=== PATIENT | female | born 1930 | race Caucasian/White ===

== ENCOUNTER 2016-11-04 11:57 | Inpatient (IN) | payer OTHER ==
[2016-11-04 12:31] VITALS: BMI 31.2
--- NOTE | 2016-11-04 12:34 | PDOC ---
History of Present Illness <Landry Webster - Last Filed: 11/04/16 14:41> - General History Source: Patient, Family Exam Limitations: Dementia - History of Present Illness Initial Comments: 86 yo F history dementia, HTN, osteopotosis sent by Dr. Guevara for admission. She has history of dementia, was recently started on namenda after she was starting to get worse. She has been declining for 1 month. She has developed swelling in her feet bilaterally, has not been walking, stating that her feet hurt and she is weak. Denies fever, chills. No recent illness. She offers no complaints. As per family, she is usually very active and talkative, has been listless, apathetic. Not attending to her ADLs independently. History obtained largely from sonDevyn, at bedside. Contact number <Estrellita Gambino - Last Filed: 11/05/16 15:25> - General Chief Complaint: Revisit, Lab Variance Stated Complaint: Revisit, Lab Variance Time Seen by Provider: 11/04/16 12:04 Past History <Landry Webster - Last Filed: 11/04/16 14:41> - Past Medical History HTN: Yes Hypercholesterolemia: Yes - Immunization History Immunization Up to Date: Yes - Psycho/Social/Smoking Cessation Hx Anxiety: No Suicidal Ideation: No Smoking History: Never smoked Have you smoked in the past 12 months: No Information on smoking cessation initiated: No Hx Alcohol Use: No Drug/Substance Use Hx: No Substance Use Type: None <Estrellita Gambino - Last Filed: 11/05/16 15:25> - Past Medical History Allergies/Adverse Reactions: Allergies Allergy/AdvReac Type Severity Reaction Status Date / Time No Known Allergies Allergy Verified 11/04/16 15:07 Home Medications: Ambulatory Orders Alendronate Na [Fosamax] 70 mg PO Q7D 11/04/16 Aspirin [ASA -] 81 mg PO DAILY 11/04/16 Calcium 500Mg/Vit-D 200 Units [Os-Gregg 500+D -] 1 combo PO BID 11/04/16 Citalopram Hydrobromide [Citalopram HBr] 10 mg PO ASDIR 11/04/16 Donepezil HCl [Aricept -] 5 mg PO ASDIR 11/04/16 Ergocalciferol [Drisdol -] 50,000 unit PO Q7D@1000 11/04/16 Furosemide [Lasix] 20 mg PO DAILY 11/04/16 Lisinopril [Zestril] 30 mg PO ASDIR 11/04/16 Lisinopril [Zestril] 30 mg PO DAILY 11/04/16 Memantine HCl [Namenda Xr] 7 mg PO DAILY 11/04/16 Omeprazole 20 mg PO DAILY 11/04/16 Risperidone 0.25 mg PO DAILY 11/04/16 Rosuvastatin [Crestor -] 10 mg PO DAILY 11/04/16 Ubidecarenone [Coenzyme Q-10] 200 mg PO DAILY 11/04/16 Review of Systems - Review of Systems Able to Perform ROS?: No (dementia, AMS) <Estrellita Gambino - Last Filed: 11/05/16 15:25> *Physical Exam - Vital Signs Last Vital Signs Temp Pulse Resp BP Pulse Ox 68 18 85/32 96 11/04/16 13:04 11/04/16 13:04 11/04/16 13:04 11/04/16 13:04 <Landry Webster - Last Filed: 11/04/16 14:41> - Vital Signs Last Vital Signs Temp Pulse Resp BP Pulse Ox 84 18 124/66 100 11/04/16 12:00 11/04/16 12:00 11/04/16 12:00 11/04/16 12:00 - Physical Exam Comments: GENERAL: Awake, alert, oriented to person, in no acute distress HEAD: No signs of trauma EYES: PERRLA, EOMI, sclera anicteric, conjunctiva clear ENT: Auricles normal inspection, hearing grossly normal, nares patent, oropharynx clear without exudates. Dry mucosa NECK: Normal ROM, supple, no lymphadenopathy, JVD, or masses LUNGS: Breath sounds equal, clear to auscultation bilaterally. No wheezes, and no crackles HEART: Regular rate and rhythm, normal S1 and S2, no murmurs, rubs or gallops ABDOMEN: Soft, nontender, normoactive bowel sounds. No guarding, no rebound. No masses EXTREMITIES: Normal range of motion, 2+ pitting edema to the feet and ankles B/ L. No clubbing or cyanosis. No cords, erythema, or tenderness NEUROLOGICAL: Cranial nerves II through XII grossly intact. Normal speech. Moving all extremities. Sensation intact. SKIN: Warm, Dry, normal turgor, no rashes or lesions noted. <Estrellita Gambino - Last Filed: 11/05/16 15:25> ED Treatment Course - LABORATORY CBC & Chemistry Diagram: 11/04/16 12:50 11/04/16 12:54 - ADDITIONAL ORDERS Additional order review: Laboratory Results 11/04/16 11/04/16 12:54 12:50 Sodium 141 Potassium 4.0 Chloride 101 Carbon Dioxide 29 D Anion Gap 11 BUN 26 H Creatinine 1.1 H Creat Clearance w eGFR 47.32 Random Glucose 111 H D Calcium 9.5 Total Bilirubin 0.3 D AST 14 L D ALT 13 D Alkaline Phosphatase 141 H D Creatine Kinase 134 Troponin I < 0.02 B-Natriuretic Peptide 402.98 Total Protein 6.3 L Albumin 2.9 L TSH 1.23 11/04/16 12:50 RBC 4.11 MCV 86.7 MCHC 32.6 RDW 15.1 MPV 6.9 L Neutrophils % 67.0 Lymphocytes % 20.1 Monocytes % 8.8 Eosinophils % 3.1 Basophils % 1.0 - RADIOLOGY Radiograph Interpretation: 11/04/16 14:20 CT/HEAD CT WITHOUT CONTRAST Impression: No significant interval change or gross acute intracranial pathology is identified. Correlate clinically to determine further evaluation and follow up. Reported by: Alonso Lares 11/04/16 14:41 RAD/CHEST X-RAY PORTABLE* Impression: No acute disease. Reported by: Gordon Mccullough <Landry Webster - Last Filed: 11/04/16 14:41> - LABORATORY CBC & Chemistry Diagram: 11/04/16 12:50 11/05/16 06:00 <Estrellita Gambino - Last Filed: 11/05/16 15:25> *DC/Admit/Observation/Transfer <Landry Webster - Last Filed: 11/04/16 14:41> - Discharge Dispostion Admit: Yes <Estrellita Gambino - Last Filed: 11/05/16 15:25> Diagnosis at time of Disposition: Failure to thrive Qualifiers: Failure to thrive age range: in adult Qualified Code(s): R62.7 - Adult failure to thrive Urinary tract infection Qualifiers: Urinary tract infection type: site unspecified Hematuria presence: without hematuria Qualified Code(s): N39.0 - Urinary tract infection, site not specified - Discharge Dispostion Condition at time of disposition: Stable
[2016-11-04 12:57] LABS: EOSINOPHIL 3.1 % (0-4.5); MCH 28.3 pg (25.7-33.7); MCHC 32.6 g/dl (32.0-36.0); MEAN CELL VOLUME 86.7 fl (80-96); MEAN PLT VOLUME 6.9 fl (7.5-11.1); PLATELET COUNT 389 K/MM3 (134-434); RDW 15.1 % (11.6-15.6); WHITE BLOOD COUNT 8.2 K/mm3 (4.0-10.0)
[2016-11-04 13:22] LABS: ALBUMIN 2.9 g/dl (3.4-5.0); ANION GAP 11 (8-16); BILIRUBIN,TOTAL 0.3 mg/dL (0.2-1.0); CALCIUM 9.5 mg/dL (8.5-10.1); CO2 29 mmol/L (21-32); COCKROFT - GAULT 43.6135; CREATININE 1.1 mg/dL (0.55-1.02); GLUCOSE,RANDOM 111 mg/dL (74-106); SGOT/AST 14 U/L (15-37); SGPT/ALT 13 U/L (12-78); TOT PROT 6.3 g/dl (6.4-8.2)
[2016-11-04 13:25] LABS: ALK PHOS 141 U/L (45-117); TROPONIN I < 0.02 ng/ml (0.00-0.05)
[2016-11-04 16:42] LABS: URINE APPEARANCE CLEAR; URINE BILIRUBIN NEGATIVE (NEGATIVE); URINE COLOR YELLOW; URINE GLUCOSE (UA) NEGATIVE (NEGATIVE); URINE KETONE NEGATIVE (NEGATIVE); URINE NITRITE NEGATIVE (NEGATIVE); URINE PROTEIN NEGATIVE (NEGATIVE); URINE UROBILINOGEN 4.0 E.U/dl E.U./dl (0.2-1.0)
[2016-11-04] MEDS ORDERED: LEVOFLOXACIN 500 MG IVPB 100 ML IVPB ONE ×2 (17:00→17:33)
[2016-11-04 17:01] LABS: URINE BLOOD 2+ (NEGATIVE); URINE LEUK ESTERASE TRACE (NEGATIVE)
[2016-11-04 17:10] LABS: URINE BACTERIA RARE /hpf (NONE SEEN); URINE HYALINE CAST 4 /lpf; URINE MUCUS RARE; URINE RBC 38 /hpf (0-3); URINE WBC 15 /hpf (3-5)
[2016-11-04] MEDS: CALCIUM 500MG/VIT-D 200 UNITS COMBO TABLET (FP) PO SCH (22:53)
[2016-11-04] MEDS: LISINOPRIL 10 MG TABLET (FP) PO SCH (22:53)
[2016-11-04] MEDS: HEPARIN NA (PORCINE) 5,000 UNITS/ML 1ML VIAL SQ SCH (22:53)
[2016-11-04] MEDS: ACETAMINOPHEN 325 MG TABLET (FP) PO PRN (22:54)
[2016-11-05 08:35] LABS: ALBUMIN 2.7 g/dl (3.4-5.0); ANION GAP 7 (8-16); CALCIUM 9.2 mg/dL (8.5-10.1); CO2 32 mmol/L (21-32); GLUCOSE,RANDOM 83 mg/dL (74-106)
[2016-11-05 08:41] LABS: ALK PHOS 127 U/L (45-117); BILIRUBIN,TOTAL 0.3 mg/dL (0.2-1.0); SGOT/AST 15 U/L (15-37); SGPT/ALT 9 U/L (12-78); TOT PROT 5.8 g/dl (6.4-8.2); TROPONIN I < 0.02 ng/ml (0.00-0.05)
--- NOTE | 2016-11-05 09:04 | HP ---
Admitting History and Physical - Admission History of Present Illness: 86 yo F history dementia, HTN, osteopotosis sent by Dr. Guevara for admission. She has history of dementia, was recently started on namenda after she was starting to get worse. She has been declining for 1 month. She has developed swelling in her feet bilaterally, has not been walking, stating that her feet hurt and she is weak. Denies fever, chills. No recent illness. She offers no complaints. As per family, she is usually very active and talkative, has been listless, apathetic. Not attending to her ADLs independently. 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 Cardiovascular: Yes: CHF, HTN, Hyperlipdemia Gastrointestinal: Yes: GERD - Smoking History Smoking history: Never smoked Have you smoked in the past 12 months: No - Alcohol/Substance Use Hx Alcohol Use: No Home Medications - Allergies Allergies/Adverse Reactions: Allergies Allergy/AdvReac Type Severity Reaction Status Date / Time No Known Allergies Allergy Verified 11/04/16 15:07 - Home Medications Home Medications: Ambulatory Orders Alendronate Na [Fosamax] 70 mg PO Q7D 11/04/16 Aspirin [ASA -] 81 mg PO DAILY 11/04/16 Calcium 500Mg/Vit-D 200 Units [Os-Gregg 500+D -] 1 combo PO BID 11/04/16 Citalopram Hydrobromide [Citalopram HBr] 10 mg PO ASDIR 11/04/16 Donepezil HCl [Aricept -] 5 mg PO ASDIR 11/04/16 Ergocalciferol [Drisdol -] 50,000 unit PO Q7D@1000 11/04/16 Furosemide [Lasix] 20 mg PO DAILY 11/04/16 Lisinopril [Zestril] 30 mg PO ASDIR 11/04/16 Lisinopril [Zestril] 30 mg PO DAILY 11/04/16 Memantine HCl [Namenda Xr] 7 mg PO DAILY 11/04/16 Omeprazole 20 mg PO DAILY 11/04/16 Risperidone 0.25 mg PO DAILY 11/04/16 Rosuvastatin [Crestor -] 10 mg PO DAILY 11/04/16 Ubidecarenone [Coenzyme Q-10] 200 mg PO DAILY 11/04/16 Review of Systems - Review of Systems Cardiovascular: reports: Edema, Shortness of Breath. denies: Chest Pain Respiratory: reports: SOB, SOB on Exertion Gastrointestinal: denies: Abdominal Pain Musculoskeletal: reports: Extremity Pain Neurological: reports: Confusion, Dizziness, Unsteady Gait Physical Examination Vital Signs: Vital Signs Temperature 98 F 11/05/16 06:00 Pulse Rate 75 11/05/16 06:00 Respiratory Rate 20 11/05/16 06:00 Blood Pressure 129/63 11/05/16 06:00 O2 Sat by Pulse Oximetry (%) 98 11/04/16 21:00 Cardiovascular: Yes: Regular Rate and Rhythm Respiratory: Yes: Regular, CTA Bilaterally Gastrointestinal: Yes: Normal Bowel Sounds, Soft Musculoskeletal: Yes: Joint Stiffness, Joint Swelling Edema: Yes Labs: CBC, BMP 11/05/16 06:00 Imaging - Results X-ray: Report Reviewed Cat Scan: Report Reviewed (HEAD) Problem List - Problems (1) Failure to thrive Assessment/Plan: MONITOR TREAT UTI Code(s): ELF4321 - Qualifiers: Failure to thrive age range: in adult Qualified Code(s): R62.7 - Adult failure to thrive (2) UTI (urinary tract infection) Assessment/Plan: ABX UC Code(s): N39.0 - URINARY TRACT INFECTION, SITE NOT SPECIFIED Qualifiers: Urinary tract infection type: site unspecified Hematuria presence: without hematuria Qualified Code(s): N39.0 - Urinary tract infection, site not specified (3) CHF (congestive heart failure) Assessment/Plan: LASIX CARDIO ECHO Code(s): I50.9 - HEART FAILURE, UNSPECIFIED (4) Edema Assessment/Plan: VENOUS DUPLEX ON LASIX Code(s): R60.9 - EDEMA, UNSPECIFIED (5) Foot deformity Assessment/Plan: XRAY PODIATRY Code(s): M21.969 - UNSPECIFIED ACQUIRED DEFORMITY OF UNSPECIFIED LOWER LEG (6) Dementia Assessment/Plan: NEURO SAME MEDS Code(s): F03.90 - UNSPECIFIED DEMENTIA WITHOUT BEHAVIORAL DISTURBANCE
[2016-11-05] MEDS ORDERED: LEVOFLOXACIN 500 MG IVPB 100 ML IVPB SCH (10:00)
[2016-11-05] MEDS ORDERED: FUROSEMIDE 20 MG TABLET (FP) PO SCH (10:00)
[2016-11-05] MEDS ORDERED: risperiDONE 0.25 MG TABLET (FP) PO SCH (10:00)
[2016-11-05] MEDS ORDERED: DONEPEZIL HCL 5 MG TABLET (FP) PO SCH (10:00)
[2016-11-05] MEDS: LISINOPRIL 10 MG TABLET (FP) PO SCH ×2 (11:26→22:17)
[2016-11-05] MEDS: ROSUVASTATIN CA 10 MG TABLET (FP) PO SCH (11:26)
[2016-11-05] MEDS: CITALOPRAM HYDROBROMIDE 10 MG TABLET (FP) PO SCH (11:26)
[2016-11-05] MEDS: PANTOPRAZOLE 40 MG TABLET (FP) PO SCH (11:26)
[2016-11-05] MEDS: ASPIRIN 81 MG CHEWABLE TABLETS PO SCH (11:26)
[2016-11-05] MEDS: FUROSEMIDE 40 MG/4 ML INJECTABLE VIAL IVPB SCH (11:27)
[2016-11-05] MEDS: HEPARIN NA (PORCINE) 5,000 UNITS/ML 1ML VIAL SQ SCH ×2 (11:32→22:18)
[2016-11-05] MEDS: CALCIUM 500MG/VIT-D 200 UNITS COMBO TABLET (FP) PO SCH ×2 (11:36→22:17)
[2016-11-05] MEDS ORDERED: QUEtiapine FUMARATE 25 MG TABLET (FP) PO ONE (15:30)
--- NOTE | 2016-11-05 15:54 | CON.CARD ---
Consult Consult Specialty:: Cardiology - History of Present Illness Chief Complaint: CHF History of Present Illness: This is an 86 year old female with a PMH of dementia, HTN, and osteopotosis. Recently she developed pedal edema and had decreased her amount of walking. She has been observed by her family to be more apathetic and less active. Portable CHF 11/04/16 did not suggest CHF. BNP was 406. Family member at the bedside stated that the patient has become more SOB with FLORES recently. - Alcohol/Substance Use Hx Alcohol Use: No - Smoking History Smoking history: Never smoked Have you smoked in the past 12 months: No Home Medications - Allergies Allergies/Adverse Reactions: Allergies Allergy/AdvReac Type Severity Reaction Status Date / Time No Known Allergies Allergy Verified 11/04/16 15:07 - Home Medications Home Medications: Ambulatory Orders Alendronate Na [Fosamax] 70 mg PO Q7D 11/04/16 Aspirin [ASA -] 81 mg PO DAILY 11/04/16 Calcium 500Mg/Vit-D 200 Units [Os-Gregg 500+D -] 1 combo PO BID 11/04/16 Citalopram Hydrobromide [Citalopram HBr] 10 mg PO ASDIR 11/04/16 Donepezil HCl [Aricept -] 5 mg PO ASDIR 11/04/16 Ergocalciferol [Drisdol -] 50,000 unit PO Q7D@1000 11/04/16 Furosemide [Lasix] 20 mg PO DAILY 11/04/16 Lisinopril [Zestril] 30 mg PO ASDIR 11/04/16 Lisinopril [Zestril] 30 mg PO DAILY 11/04/16 Memantine HCl [Namenda Xr] 7 mg PO DAILY 11/04/16 Omeprazole 20 mg PO DAILY 11/04/16 Risperidone 0.25 mg PO DAILY 11/04/16 Rosuvastatin [Crestor -] 10 mg PO DAILY 11/04/16 Ubidecarenone [Coenzyme Q-10] 200 mg PO DAILY 11/04/16 Review of Systems Findings/Remarks: As per HPI Vital Signs: Vital Signs Temperature 98.0 F 11/05/16 15:20 Pulse Rate 73 11/05/16 15:20 Respiratory Rate 20 11/05/16 15:20 Blood Pressure 122/65 11/05/16 15:20 O2 Sat by Pulse Oximetry (%) 98 11/05/16 09:00 Constitutional: Yes: No Distress Respiratory: Yes: Other (Bibasilar dullness Poor inspiratory effort) Gastrointestinal: Yes: Normal Bowel Sounds Cardiovascular: Yes: Regular Rate and Rhythm Heart Sounds: Yes: S1, S2 (No MRHG) Extremities: Yes: Other (Trace edema) Neurological: Yes: Alert, Oriented - Other Data Labs, Other Data: CBC, BMP 11/05/16 06:00 Troponin, BNP 11/05/16 06:00 Troponin I < 0.02 Troponin, BNP 11/05/16 06:00 Troponin I < 0.02 Assessment/Plan [facility] *LIVE* CHF CXR and low BNP do not suggest an acute CHF exacerbations, however, the family does report occasional pedal edema and SOB Would obtain an echocardiogram BP currently under good control Continue: Lisinopril 30 mg Lasix 20 mg PO daily Will follow with you
[2016-11-05] MEDS ORDERED: QUEtiapine FUMARATE 25 MG TABLET (FP) PO SCH (16:00)
--- NOTE | 2016-11-05 16:02 | CONSULT ---
Consult - text type - Consultation Consultation Note: NEUROLOGY CONSULTATION is greatly appreciated: This 86 yo RH woman lives with family. PMH sig for HTN, Chol, GERD, OP, depression and dementia. On donepezil (5 mg); Namenda XR (7 mg); lisinopril, alendronate, citalopram, furosamide, crestor and omeprazole. Now admitted by family after a week of declining function. W/U in ER supported UTI (WBC=15). Patient is now on levaquin. TSH Nl. RONNA: No bruits. Cor reg. No external head trauma. NEURO: Awake, alert, cooperative. Ox her address. [facility]. August,. Recalls 1 of 3 @ 3. +Glabella, snout, grasps. CN II-XII: Sl masked. Otherwise normal Motor: No drift or tremor. Sl bradykinesia.. Mild cogwheeling with reinforcement. Sl reduced Sabrina. Normal strength and reflexes. Toes downgoing. Coord: Nor FTN dystaxia Sensory: Normal Gait: Frozen and spontaneously retropulsive. IMP: Moderate, B/L cerebral dysfunction (OMS/Chronic) c/w Alzheimer's disease). Ataxia with Parkinsonian features. Worsening due to Toxic-metabolic encephalopathy (UTI). Suggest: CT of head (unless recent neuroimaging has been performed). Check B12, RPR Continue antibiotics and hydration Increase donepezil to 10 mg after breakfast. Change Namenda XR to Namenda 5 mg PO BID after meals (while hospitalized). D/C Risperdal (will worsen Parkinsonian features and gait). Instead try quetiapine 12.5 mg PO BID PRN and 25 mg PO q HS. PT for gait training with walker. Thank you very much, Tucker Morse MD
[2016-11-05] MEDS ORDERED: QUEtiapine FUMARATE 25 MG TABLET (FP) PO PRN (17:44)
[2016-11-05] MEDS: LEVOFLOXACIN 500 MG IVPB 100 ML IVPB SCH (17:48)
--- NOTE | 2016-11-05 19:19 | EKG ---
Test Reason : Blood Pressure : / mmHG Vent. 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
[2016-11-05] MEDS: QUEtiapine FUMARATE 25 MG TABLET (FP) PO SCH (22:17)
[2016-11-05] MEDS: MEMANTINE HCL 5 MG TABLET (UD) PO SCH (22:17)
[2016-11-06] MEDS: CITALOPRAM HYDROBROMIDE 10 MG TABLET (FP) PO SCH (09:59)
[2016-11-06] MEDS: CALCIUM 500MG/VIT-D 200 UNITS COMBO TABLET (FP) PO SCH ×2 (09:59→21:14)
[2016-11-06] MEDS: DONEPEZIL HCL 10 MG TABLET (FP) PO SCH (09:59)
[2016-11-06] MEDS: LEVOFLOXACIN 500 MG IVPB 100 ML IVPB SCH (09:59)
[2016-11-06] MEDS: ASPIRIN 81 MG CHEWABLE TABLETS PO SCH (09:59)
[2016-11-06] MEDS: MEMANTINE HCL 5 MG TABLET (UD) PO SCH ×2 (10:00→21:14)
[2016-11-06] MEDS: FUROSEMIDE 40 MG/4 ML INJECTABLE VIAL IVPB SCH (10:00)
[2016-11-06] MEDS: ROSUVASTATIN CA 10 MG TABLET (FP) PO SCH (10:00)
[2016-11-06] MEDS: HEPARIN NA (PORCINE) 5,000 UNITS/ML 1ML VIAL SQ SCH ×2 (10:00→21:14)
[2016-11-06] MEDS: PANTOPRAZOLE 40 MG TABLET (FP) PO SCH (10:00)
[2016-11-06] MEDS: ACETAMINOPHEN 325 MG TABLET (FP) PO PRN (10:01)
[2016-11-06] MEDS: LISINOPRIL 10 MG TABLET (FP) PO SCH ×2 (10:05→21:14)
--- NOTE | 2016-11-06 12:37 | CONSULT ---
Consult - text type - Consultation Consultation Note: Podiatry Consultation: 86 year old pleasant F, sent in for admission for worsening AMS, swelling in L foot. She has not been attending to ADLs at home. Currently afebrile, VSS. Podiatry consultation requested for L foot swelling, intermittent pain during ambulation. Patient denies trauma to L foot. Has never had surgery on the left foot. PMHx: Dementia, HTN, osteoporosis Meds: noted in chart ALL: NKMA ANNA: Pedal pulses palpable, TG wnl, CFT brisk to all toes bilaterally. On the left foot, there is severe hallux valgus deformity with valgus rotation of great toe. There is hammer toe deformity 2nd digit with contracture at the level of the PIPJ and MTPJ. Both deformities are rigid in nature. The bunion and hammer toe deformity are non-reducible. There are no open wounds, just hyperkeratotic lesions. L foot XR: severe hallux valgus deformity with subluxation. Severe contracture 2nd MTPJ with lateral angulation of 2nd digit. No evidence of fracture. Osteoporotic bone. Imp: 86 year old F with severe bunion deformity and arthralgia of left foot 1. Findings suggestive of severe arthralgia of foot with severe bunion deformity. ? rheumatoid arthritis given radiographic findings. However, given patient's age and mental status she is not a strong candidate for any operative management. 2. Recommend shoegear modification (i.e. wider shoegear), NSAIDs as needed, PT for ambulation. 3. Thank you for the courtesy of this consultation. Anuja Smith DPM
--- NOTE | 2016-11-06 12:50 | PN ---
Progress Note, Physician History of Present Illness: AWAKE WITH PERIODS OF AGITATION - Current Medication List Current Medications: Active Medications Acetaminophen (Tylenol -) 650 mg PO Q4H PRN PRN Reason: FEVER OR PAIN Last Admin: 11/06/16 10:01 Dose: 650 mg Aspirin (Asa -) 81 mg PO DAILY [facility] Last Admin: 11/06/16 09:59 Dose: 81 mg Calcium Carbonate/Cholecalciferol (Os-Gregg 500+D -) 1 tab PO BID [facility] Last Admin: 11/06/16 09:59 Dose: 1 tab Citalopram Hydrobromide (Celexa -) 10 mg PO DAILY [facility] Last Admin: 11/06/16 09:59 Dose: 10 mg Donepezil HCl (Aricept -) 10 mg PO DAILY [facility] Last Admin: 11/06/16 09:59 Dose: 10 mg Furosemide (Lasix Injection -) 20 mg IVPB DAILY [facility] Last Admin: 11/06/16 10:00 Dose: 20 mg Heparin Sodium (Porcine) (Heparin -) 5,000 unit SQ BID [facility] Last Admin: 11/06/16 10:00 Dose: 5,000 unit Levofloxacin (Levaquin 500 Mg Premixed Ivpb -) 100 mls @ 100 mls/hr IVPB DAILY [facility] Last Admin: 11/06/16 09:59 Dose: 100 mls/hr Lisinopril (Prinivil) 10 mg PO BID [facility] Last Admin: 11/06/16 10:05 Dose: Not Given Memantine (Namenda -) 5 mg PO BID [facility] Last Admin: 11/06/16 10:00 Dose: 5 mg Pantoprazole Sodium (Protonix -) 40 mg PO DAILY [facility] Last Admin: 11/06/16 10:00 Dose: 40 mg Quetiapine Fumarate (Seroquel -) 25 mg PO HS [facility] Last Admin: 11/05/16 22:17 Dose: 25 mg Quetiapine Fumarate (Seroquel -) 12.5 mg PO BID PRN PRN Reason: AGITATION Rosuvastatin Calcium (Crestor -) 10 mg PO DAILY [facility] Last Admin: 11/06/16 10:00 Dose: 10 mg - Objective Vital Signs: Vital Signs Temperature 98.3 F 11/06/16 10:12 Pulse Rate 100 H 11/06/16 10:12 Respiratory Rate 18 11/06/16 10:12 Blood Pressure 87/55 11/06/16 10:12 O2 Sat by Pulse Oximetry (%) 98 11/06/16 09:00 Cardiovascular: Yes: S1, S2 Respiratory: Yes: Regular, CTA Bilaterally Gastrointestinal: Yes: Normal Bowel Sounds, Soft Labs: CBC, BMP 11/05/16 06:00 Problem List - Problems (1) Failure to thrive Assessment/Plan: APETITE IS GOOD PT MONITOR TREAT UTI Code(s): STG9451 - Qualifiers: Failure to thrive age range: in adult Qualified Code(s): R62.7 - Adult failure to thrive (2) UTI (urinary tract infection) Assessment/Plan: ABX UC Microbiology 11/04/16 16:26 Urine Culture - Final Urine - Urine Clean Catch NO GROWTH OBTAINED Code(s): N39.0 - URINARY TRACT INFECTION, SITE NOT SPECIFIED Qualifiers: Urinary tract infection type: site unspecified Hematuria presence: without hematuria Qualified Code(s): N39.0 - Urinary tract infection, site not specified (3) CHF (congestive heart failure) Assessment/Plan: LASIX CARDIO ECHO Code(s): I50.9 - HEART FAILURE, UNSPECIFIED (4) Edema Assessment/Plan: VENOUS DUPLEX NEGATIVE Code(s): R60.9 - EDEMA, UNSPECIFIED (5) Foot deformity Assessment/Plan: XRAY--BUNION PODIATRY NOTED--PT Code(s): M21.969 - UNSPECIFIED ACQUIRED DEFORMITY OF UNSPECIFIED LOWER LEG (6) Dementia Assessment/Plan: NEURO SAME MEDS Code(s): F03.90 - UNSPECIFIED DEMENTIA WITHOUT BEHAVIORAL DISTURBANCE
[2016-11-06] MEDS: QUEtiapine FUMARATE 25 MG TABLET (FP) PO SCH (21:14)
[2016-11-07] MEDS: LEVOFLOXACIN 500 MG IVPB 100 ML IVPB SCH (12:00)
[2016-11-07] MEDS: FUROSEMIDE 40 MG/4 ML INJECTABLE VIAL IVPB SCH (12:01)
[2016-11-07] MEDS: PANTOPRAZOLE 40 MG TABLET (FP) PO SCH (12:01)
[2016-11-07] MEDS: CITALOPRAM HYDROBROMIDE 10 MG TABLET (FP) PO SCH (12:02)
[2016-11-07] MEDS: ROSUVASTATIN CA 10 MG TABLET (FP) PO SCH (12:02)
[2016-11-07] MEDS: ASPIRIN 81 MG CHEWABLE TABLETS PO SCH (12:02)
[2016-11-07] MEDS: DONEPEZIL HCL 10 MG TABLET (FP) PO SCH (12:03)
[2016-11-07] MEDS: CALCIUM 500MG/VIT-D 200 UNITS COMBO TABLET (FP) PO SCH ×2 (12:03→21:26)
[2016-11-07] MEDS: HEPARIN NA (PORCINE) 5,000 UNITS/ML 1ML VIAL SQ SCH ×2 (12:03→21:27)
[2016-11-07] MEDS: MEMANTINE HCL 5 MG TABLET (UD) PO SCH ×2 (12:03→21:27)
[2016-11-07] MEDS: LISINOPRIL 10 MG TABLET (FP) PO SCH ×2 (12:04→21:27)
--- NOTE | 2016-11-07 13:43 | CONSULT ---
Consult Consult Specialty:: PM&R Reason for Consultation:: BLE pain - History of Present Illness Chief Complaint: B foot pain History of Present Illness: This is an 86 year old woman with a medical history of dementia, HTN, osteoporosis, who was sent to the ED 11/04/16 with decreased energy and BLE swelling and pain. Cards recommended echo and medication changes for possible CHF exacerbation. Neurology consult adjusted dementia medications. Podiatry evaluated her foot pain, declining surgical intervention but recommended PT. Physiatry is being consulted for further recommendation. She denies LBP, notes mild B knee pain but pain mostly at B foot. 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 Cardio/Vascular: Yes: CHF, HTN, Hyperlipdemia Gastrointestinal: Yes: GERD - Alcohol/Substance Use Hx Alcohol Use: No - Smoking History Smoking history: Never smoked Have you smoked in the past 12 months: No Home Medications - Allergies Allergies/Adverse Reactions: Allergies Allergy/AdvReac Type Severity Reaction Status Date / Time No Known Allergies Allergy Verified 11/04/16 15:07 - Home Medications Home Medications: Ambulatory Orders Alendronate Na [Fosamax] 70 mg PO Q7D 11/04/16 Aspirin [ASA -] 81 mg PO DAILY 11/04/16 Calcium 500Mg/Vit-D 200 Units [Os-Gregg 500+D -] 1 combo PO BID 11/04/16 Citalopram Hydrobromide [Citalopram HBr] 10 mg PO ASDIR 11/04/16 Donepezil HCl [Aricept -] 5 mg PO ASDIR 11/04/16 Ergocalciferol [Drisdol -] 50,000 unit PO Q7D@1000 11/04/16 Furosemide [Lasix] 20 mg PO DAILY 11/04/16 Lisinopril [Zestril] 30 mg PO ASDIR 11/04/16 Lisinopril [Zestril] 30 mg PO DAILY 11/04/16 Memantine HCl [Namenda Xr] 7 mg PO DAILY 11/04/16 Omeprazole 20 mg PO DAILY 11/04/16 Risperidone 0.25 mg PO DAILY 11/04/16 Rosuvastatin [Crestor -] 10 mg PO DAILY 11/04/16 Ubidecarenone [Coenzyme Q-10] 200 mg PO DAILY 06/02/17 Review of Systems Findings/Remarks: denies fevers, CP, SOB or abdominal pain. Notes B knee pain and B foot pain. Physical Exam Vital Signs: Vital Signs Temperature 97.3 F L 11/07/16 06:10 Pulse Rate 79 11/07/16 06:10 Respiratory Rate 20 11/07/16 06:10 Blood Pressure 121/62 11/07/16 06:10 O2 Sat by Pulse Oximetry (%) 96 11/06/16 21:00 Extremities: Yes: Other (General: calm elderly HF lying in bed NAD N/M: 4+/5 B HF/ KE, 4/5 B DF, unable to extend B EHL; Pinprick Intact BLE Extremities: trace BLE pitting edema, no B calf tenderness, +valgus hallux with mild tenderness B medial 1st MTP) Labs: CBC, BMP 11/05/16 06:00 Imaging - Results X-ray: Report Reviewed (11/05/16 L foot XR shows 1st MTP bunion with increased subluxation without acute pathology) Other: Report Reviewed (BLE doppler US negative for DVT) Assessment/Plan Impression: 1) Deficits mobility/ ADLs 2) Deconditioning 3) Gait abnormality 4) B hallux valgus 5) Dementia c/w Alzheimers 6) Possible CHF with hx HTN 7) hx osteoporosis 8) Elevated BUN 9) BMI WNL Recommendations: 1) PT for stretching strengthening ROM bed mobility transfers balance ambulation 2) Falls, safety precautions 3) Cardiac precautions 4) Heat/ ice B feet prn 5) DVT ppx: on hep sc 6) Monitor bowels 7) Skin protection: float heels, frequent turning 8) Monitor BMP given renal function 9) Discharge planning: depending on hospital course and pain control, may be able to return home with services versus [facility] Thank you for this referral.
--- NOTE | 2016-11-07 14:25 | DS ---
Physical Examination Vital Signs: Vital Signs Temperature 97.3 F L 11/07/16 06:10 Pulse Rate 79 11/07/16 06:10 Respiratory Rate 20 11/07/16 06:10 Blood Pressure 121/62 11/07/16 06:10 O2 Sat by Pulse Oximetry (%) 96 11/06/16 21:00 Constitutional: Yes: Calm, Other (wants to go home) Cardiovascular: Yes: Regular Rate and Rhythm, S1, S2 Respiratory: Yes: CTA Bilaterally Gastrointestinal: Yes: Normal Bowel Sounds, Soft Edema: No Neurological: Yes: Alert (responds to her name) Labs: CBC, BMP 11/05/16 06:00 Discharge Summary Reason For Visit: FAILURE TO THRIVE Current Active Problems CHF (congestive heart failure) (Acute) Dementia (Acute) Edema (Acute) Failure to thrive (Acute) Foot deformity (Acute) UTI (urinary tract infection) (Acute) Hospital Course: 86 yo F history dementia, HTN, osteopotosis sent by Dr. Guevara for admission. She has history of dementia, was recently started on namenda after she was starting to get worse. She has been declining for 1 month. She has developed swelling in her feet bilaterally, has not been walking, stating that her feet hurt and she is weak. Denies fever, chills. No recent illness. She offers no complaints. As per family, she is usually very active and talkative, has been listless, apathetic. Not attending to her ADLs independently. pain in left foot persistent swelling on diuretics - Past Medical History SHUCKER: Yes: Dementia Cardiovascular: Yes: CHF, HTN, Hyperlipdemia Gastrointestinal: Yes: GERD - Smoking History Smoking history: Never smoked started on iv abx for uti, normal wbc, negative culture stop abx seen by PT NEEDS assist of two ambulate 30 feet- seen by neurology dementia meds adjusted seen by podiatry for foot pain recomend wide shoe gear and PT, no surgery Condition: Guarded - Instructions Diet, Activity, Other Instructions: nameda 5mg po bid citaloproam 10mg aricept 10mg Referrals: Boyd Wisdom MD [Primary Care Provider] - Disposition: [facility] - Home Medications Comprehensive Discharge Medication List: Ambulatory Orders Alendronate Na [Fosamax] 70 mg PO Q7D 11/04/16 Aspirin [ASA -] 81 mg PO DAILY 11/04/16 Calcium 500Mg/Vit-D 200 Units [Os-Gregg 500+D -] 1 combo PO BID 11/04/16 Citalopram Hydrobromide [Citalopram HBr] 10 mg PO ASDIR 11/04/16 Donepezil HCl [Aricept -] 5 mg PO ASDIR 11/04/16 Ergocalciferol [Drisdol -] 50,000 unit PO Q7D@1000 11/04/16 Furosemide [Lasix] 20 mg PO DAILY 11/04/16 Lisinopril [Zestril] 30 mg PO ASDIR 11/04/16 Lisinopril [Zestril] 30 mg PO DAILY 11/04/16 Memantine HCl [Namenda Xr] 7 mg PO DAILY 11/04/16 Omeprazole 20 mg PO DAILY 11/04/16 Risperidone 0.25 mg PO DAILY 11/04/16 Rosuvastatin [Crestor -] 10 mg PO DAILY 11/04/16 Ubidecarenone [Coenzyme Q-10] 200 mg PO DAILY 11/04/16
--- NOTE | 2016-11-07 18:20 | PN ---
Progress Note, Physician Chief Complaint: No complaints comfortable History of Present Illness: This is an 86 year old female with a PMH of dementia, HTN, and osteopotosis. Recently she developed pedal edema and had decreased her amount of walking. She has been observed by her family to be more apathetic and less active. Portable CXR 11/04/16 did not suggest CHF. BNP was 406. Family member at the bedside stated that the patient has become more SOB with FLORES recently - Current Medication List Current Medications: Active Medications Acetaminophen (Tylenol -) 650 mg PO Q4H PRN PRN Reason: FEVER OR PAIN Last Admin: 11/06/16 10:01 Dose: 650 mg Aspirin (Asa -) 81 mg PO DAILY [facility] Last Admin: 11/07/16 12:02 Dose: 81 mg Calcium Carbonate/Cholecalciferol (Os-Gregg 500+D -) 1 tab PO BID [facility] Last Admin: 11/07/16 12:03 Dose: 1 tab Citalopram Hydrobromide (Celexa -) 10 mg PO DAILY [facility] Last Admin: 11/07/16 12:02 Dose: 10 mg Donepezil HCl (Aricept -) 10 mg PO DAILY [facility] Last Admin: 11/07/16 12:03 Dose: 10 mg Furosemide (Lasix Injection -) 20 mg IVPB DAILY [facility] Last Admin: 11/07/16 12:01 Dose: 20 mg Heparin Sodium (Porcine) (Heparin -) 5,000 unit SQ BID [facility] Last Admin: 11/07/16 12:03 Dose: 5,000 unit Lisinopril (Prinivil) 10 mg PO BID [facility] Last Admin: 11/07/16 12:04 Dose: 10 mg Memantine (Namenda -) 5 mg PO BID [facility] Last Admin: 11/07/16 12:03 Dose: 5 mg Pantoprazole Sodium (Protonix -) 40 mg PO DAILY [facility] Last Admin: 11/07/16 12:01 Dose: 40 mg Quetiapine Fumarate (Seroquel -) 25 mg PO HS [facility] Last Admin: 11/06/16 21:14 Dose: 25 mg Quetiapine Fumarate (Seroquel -) 12.5 mg PO BID PRN PRN Reason: AGITATION Rosuvastatin Calcium (Crestor -) 10 mg PO DAILY [facility] Last Admin: 11/07/16 12:02 Dose: 10 mg - Objective Vital Signs: Vital Signs Temperature 98.9 F 11/07/16 14:41 Pulse Rate 91 H 11/07/16 14:41 Respiratory Rate 20 11/07/16 14:41 Blood Pressure 104/46 11/07/16 14:41 O2 Sat by Pulse Oximetry (%) 96 11/07/16 10:00 Constitutional: Yes: No Distress HENT: Yes: WNL Neck: Yes: WNL Cardiovascular: Yes: Regular Rate and Rhythm, S1, S2. No: JVD, Murmur Respiratory: Yes: CTA Bilaterally Gastrointestinal: Yes: Normal Bowel Sounds, Soft Edema: No Labs: CBC, BMP 11/05/16 06:00 Problem List - Problems (1) CHF (congestive heart failure) Code(s): I50.9 - HEART FAILURE, UNSPECIFIED Assessment/Plan This is an 86 year old female with a PMH of dementia, HTN, and osteopotosis. Recently she developed pedal edema and had decreased her amount of walking. She has been observed by her family to be more apathetic and less active. Portable CXR 11/04/16 did not suggest CHF. BNP was 406. Family member at the bedside stated that the patient has become more SOB with FLORES recently 1) Volume status/sob Patient very comfortable today BP well controlled CXR no chf. BNP normal Echocardiogram normal LVEF with moderate MR -On aspirin/lisinopril/statin Would change IV lasix to PO No further cardiac work up at this time. Please call as needed
[2016-11-07] MEDS: QUEtiapine FUMARATE 25 MG TABLET (FP) PO SCH (21:26)
[2016-11-08] MEDS ORDERED: FUROSEMIDE 40 MG TABLET (FP) PO SCH (10:00)
--- NOTE | 2016-11-08 10:25 | PN ---
Progress Note, Physician Chief Complaint: FAILURE TO THRIVE History of Present Illness: PATIENT SENT IN TO THE HOSPITAL FOR FAILURE TO THRIVE, WEAKNESS, SOB AND BLLE EDEMA. ECHO-MODERATE MITRAL REGURITATION,EF-74% OTHERWISE INSIGNIFICANT, CXR- NORMAL, BNP-409. - Current Medication List Current Medications: Active Medications Acetaminophen (Tylenol -) 650 mg PO Q4H PRN PRN Reason: FEVER OR PAIN Last Admin: 11/06/16 10:01 Dose: 650 mg Aspirin (Asa -) 81 mg PO DAILY [facility] Last Admin: 11/07/16 12:02 Dose: 81 mg Calcium Carbonate/Cholecalciferol (Os-Gregg 500+D -) 1 tab PO BID [facility] Last Admin: 11/07/16 21:26 Dose: 1 tab Citalopram Hydrobromide (Celexa -) 10 mg PO DAILY [facility] Last Admin: 11/07/16 12:02 Dose: 10 mg Donepezil HCl (Aricept -) 10 mg PO DAILY [facility] Last Admin: 11/07/16 12:03 Dose: 10 mg Furosemide (Lasix -) 40 mg PO DAILY [facility] Heparin Sodium (Porcine) (Heparin -) 5,000 unit SQ BID [facility] Last Admin: 11/07/16 21:27 Dose: 5,000 unit Lisinopril (Prinivil) 10 mg PO BID [facility] Last Admin: 11/07/16 21:27 Dose: 10 mg Memantine (Namenda -) 5 mg PO BID [facility] Last Admin: 11/07/16 21:27 Dose: 5 mg Pantoprazole Sodium (Protonix -) 40 mg PO DAILY [facility] Last Admin: 11/07/16 12:01 Dose: 40 mg Quetiapine Fumarate (Seroquel -) 25 mg PO HS [facility] Last Admin: 11/07/16 21:26 Dose: 25 mg Quetiapine Fumarate (Seroquel -) 12.5 mg PO BID PRN PRN Reason: AGITATION Rosuvastatin Calcium (Crestor -) 10 mg PO DAILY [facility] Last Admin: 11/07/16 12:02 Dose: 10 mg - Objective Vital Signs: Vital Signs Temperature 98.1 F 11/08/16 06:00 Pulse Rate 73 11/08/16 06:00 Respiratory Rate 20 11/08/16 06:00 Blood Pressure 113/52 11/08/16 06:00 O2 Sat by Pulse Oximetry (%) 97 06/05/17 21:00 Constitutional: Yes: No Distress, Calm Labs: CBC, BMP 11/05/16 06:00 Problem List - Problems (1) Dementia Assessment/Plan: CONTINUE CURRENT REGIMEN. Code(s): F03.90 - UNSPECIFIED DEMENTIA WITHOUT BEHAVIORAL DISTURBANCE (2) Edema Assessment/Plan: ECHO AND CXR NORMAL CARDIOLOGY CONSULT ON DIURETICS Code(s): R60.9 - EDEMA, UNSPECIFIED (3) Failure to thrive Assessment/Plan: SECONDARY TO DEMENTIA Code(s): XGF8740 - Qualifiers: Failure to thrive age range: in adult Qualified Code(s): R62.7 - Adult failure to thrive (4) Foot deformity Assessment/Plan: NOTED Code(s): M21.969 - UNSPECIFIED ACQUIRED DEFORMITY OF UNSPECIFIED LOWER LEG Assessment/Plan RE-EVALUATE GOALS OF CARE COMFORT CARE? SYMPTOM MANAGEMENT PHYSICAL THERAPY DISCHARGE TO SNF
[2016-11-08] MEDS: MEMANTINE HCL 5 MG TABLET (UD) PO SCH (10:31)
[2016-11-08] MEDS: PANTOPRAZOLE 40 MG TABLET (FP) PO SCH (10:32)
[2016-11-08] MEDS: DONEPEZIL HCL 10 MG TABLET (FP) PO SCH (10:32)
[2016-11-08] MEDS: ROSUVASTATIN CA 10 MG TABLET (FP) PO SCH (10:32)
[2016-11-08] MEDS: HEPARIN NA (PORCINE) 5,000 UNITS/ML 1ML VIAL SQ SCH (10:32)
[2016-11-08] MEDS: LISINOPRIL 10 MG TABLET (FP) PO SCH (10:32)
[2016-11-08] MEDS: ASPIRIN 81 MG CHEWABLE TABLETS PO SCH (10:32)
[2016-11-08] MEDS: CITALOPRAM HYDROBROMIDE 10 MG TABLET (FP) PO SCH (10:32)
[2016-11-08] MEDS: CALCIUM 500MG/VIT-D 200 UNITS COMBO TABLET (FP) PO SCH (10:33)
[2016-11-08 18:36] VITALS: BP 93/48; PULSE 74; TEMP 98.7
== END 2016-11-08 18:41 | disposition home or self-care (01) | DRG 689 ==
LOC: JER 11:57 → JERBED 15:40 → J7W 18:00
PROVIDERS: ADMIT Family Medicine; ATTEND Family Medicine
DX: N39.0 Urinary tract infection, site not specified (principal); G92 Toxic encephalopathy; R62.7 Adult failure to thrive; M21.969 Unspecified acquired deformity of unspecified lower leg; I11.0 Hypertensive heart disease with heart failure; I50.9 Heart failure, unspecified; K21.9 Gastro-esophageal reflux disease without esophagitis; R60.9 Edema, unspecified; M81.0 Age-related osteoporosis without current pathological fracture; R27.0 Ataxia, unspecified; E78.5 Hyperlipidemia, unspecified; G30.9 Alzheimer's disease, unspecified; F02.80 Dementia in other diseases classified elsewhere, unspecified severity, without behavioral disturbance, psychotic disturbance, mood disturbance, and anxiety; R26.9 Unspecified abnormalities of gait and mobility
CPT/HCPCS: 36415; 70450-TC; 71010-TC; 73630-TC-LT; 73630-TC-RT; 80053; 81003; 81015; 82550; 82607; 83880; 84443; 84484; 85025; 86593; 87086; 93005; 93010; 93306-TC; 93970-TC; 97116-GP; 97162; 99284-25; J1644

== ENCOUNTER 2019-06-18 20:29 | Inpatient (IN) | payer OTHER ==
--- NOTE | 2019-06-18 22:37 | PDOC ---
History of Present Illness - General Chief Complaint: Altered Mental Status Stated Complaint: altered mental status Time Seen by Provider: 06/18/19 22:37 - History of Present Illness Initial Comments: 88 year old female history of dementia, HTN, and osteoporosis presenting via EMS from [place] with behavioral tire changer aircraft the past two days. Per phone conversation with family they state that she has been aggressive over the past two days and it is reminiscent of when she had a UTI one year prior. Deny any fever, chills, nausea, vomiting, diarrhea, or other symptoms. She has been less ambulatory over the past month but has been doing rehab at her NH. Patient is at her mental baseline currently per patients but her occasional agitation is new as of the past two days. Patient is semi-coherent in Kyr[place]z and semi- oriented but denies any focal complaints. 06/18/19 23:58 Past History - Past Medical History Allergies/Adverse Reactions: Allergies Allergy/AdvReac Type Severity Reaction Status Date / Time No Known Allergies Allergy Verified 06/18/19 22:19 Home Medications: Ambulatory Orders Alendronate Na [Fosamax (Weekly)] 70 mg PO Q7D 11/04/16 Aspirin [ASA -] 81 mg PO DAILY 11/04/16 Calcium 500Mg/Vit-D 200 Units [Os-Gregg 500+D -] 1 combo PO BID 11/04/16 Citalopram Hydrobromide [Citalopram HBr] 10 mg PO ASDIR 11/04/16 Ergocalciferol [Vitamin D2] 50,000 unit PO Q7D@1000 11/04/16 Omeprazole 20 mg PO DAILY 11/04/16 Rosuvastatin [Crestor -] 10 mg PO DAILY 11/04/16 Ubidecarenone [Coenzyme Q-10] 200 mg PO DAILY 11/04/16 Donepezil HCl [Aricept -] 10 mg PO DAILY #14 tablet MDD 1 11/07/16 Lisinopril [Prinivil] 10 mg PO BID tablet 11/07/16 Memantine HCl [Namenda -] 5 mg PO BID #20 tab MDD 2 11/07/16 Quetiapine Fumarate [Seroquel -] 12.5 mg PO BID PRN #14 tablet MDD 2 11/07/16 Quetiapine Fumarate [Seroquel -] 25 mg PO HS #30 tablet MDD 1 11/07/16 HTN: Yes Hypercholesterolemia: Yes - Immunization History Immunization Up to Date: Yes - Psycho Social/Smoking Cessation Hx Smoking History: Unknown if ever smoked Have you smoked in the past 12 months: No Hx Alcohol Use: No Drug/Substance Use Hx: No Substance Use Type: None Review of Systems - Review of Systems Constitutional: No: Chills, Diaphoresis, Fever, Loss of Appetite HEENTM: No: Eye Pain, Blurred Vision, Tearing Respiratory: No: Cough, Orthopnea, Shortness of Breath ABD/GI: No: Nausea, Vomiting : No: Dysuria, Discharge Neurological: No: Headache, Numbness, Paresthesia Psychiatric: No: Anxiety, Depression Hematologic/Lymphatic: No: Anemia, Blood Clots *Physical Exam - Vital Signs Last Vital Signs Temp Pulse Resp BP Pulse Ox 96.2 F L 57 L 16 102/48 L 99 06/18/19 20:30 06/18/19 20:30 06/18/19 20:30 06/18/19 20:30 06/18/19 20:30 - Physical Exam General Appearance: Yes: Nourished, Appropriately Dressed. No: Apparent Distress HEENT: negative: Normal ENT Inspection (cataract in left eye and not compliant with occular exam) Neck: positive: Trachea midline. negative: Tender Respiratory/Chest: positive: Lungs Clear, Normal Breath Sounds. negative: Chest Tender, Respiratory Distress, Accessory Muscle Use Cardiovascular: positive: Regular Rhythm, Regular Rate Gastrointestinal/Abdominal: positive: Normal Bowel Sounds, Flat. negative: Tender Musculoskeletal: positive: Decreased Range of Motion. negative: Normal Inspection (weakened upper and lower extremities but non focal deficit. ) Extremity: positive: Normal Capillary Refill. negative: Normal Inspection, Normal Range of Motion, Tender Integumentary: positive: Normal Color, Dry, Warm Neurologic: positive: Alert, Normal Mood/Affect. negative: Fully Oriented (AOx2 ), Motor Strength 5/5 ED Treatment Course - LABORATORY CBC & Chemistry Diagram: 06/18/19 23:00 06/18/19 23:00 Medical Decision Making - Medical Decision Making 88 year old female with history of dementia nad worsening ability to ambulate over the past month presenting with acute change in her behavior over the past two days. Labs corroborating a UTI. Head CT negative for ICH so patient given vanc/ zosyn and admitted for UTI and altered mental status with concern for sepsis (Patient QSOFA positive). Of note, patient was slightly hypotensive when she came in to high 80s systolics/ over 40-50s diastolics. However, she has been in the 90s/50s over the past few readings for the past few visits. Patient admitted to Dr. Whitney for further workup. 06/19/19 06:06 Discharge - Discharge Information Problems reviewed: Yes Clinical Impression/Diagnosis: Acute delirium UTI (urinary tract infection) Qualifiers: Urinary tract infection type: site unspecified Hematuria presence: without hematuria Qualified Code(s): N39.0 - Urinary tract infection, site not specified Condition: Fair - Admission Yes - Follow up/Referral - Patient Discharge Instructions - Post Discharge Activity
--- NOTE | 2019-06-18 22:38 | PDOC ---
Attending Attestation - Resident Resident Name: Venkata Tejada - ED Attending Attestation I have performed the following: I have examined & evaluated the patient, The case was reviewed & discussed with the resident, I agree w/resident's findings & plan - HPI HPI: 06/19/19 02:06 see resident hpi - Physicial Exam PE: 06/19/19 02:06 agree with resident exam - Medical Decision Making 06/19/19 02:06 88-year-old female with change in mental status Patient found to have a urinary tract infection Head CT shows no acute intracranial abnormality We will admit for IV antibiotics and further management
[2019-06-18] MEDS ORDERED: SODIUM CHLORIDE IV ONE (22:54)
[2019-06-18] MEDS ORDERED: SODIUM CHLORIDE 0.9% 500 ML INFUS.BAG IV ONE (23:23)
[2019-06-18 23:35] LABS: INR 1.13 (0.83-1.09); PROTHROMBIN TIME (PATIENT) 13.4 SEC (9.7-13.0)
[2019-06-18 23:36] LABS: BASO % 1.1 % (0-2.0); EOS % 1.1 % (0-4.5); HEMATOCRIT 38.8 % (32.4-45.2); HEMOGLOBIN 12.9 GM/dL (10.7-15.3); LYMPH % 20.8 % (8-40); MCH 30.1 pg (25.7-33.7); MCHC 33.1 g/dl (32.0-36.0); MEAN CELL VOLUME 90.9 fl (80-96); MEAN PLT VOLUME 8.2 fl (7.5-11.1); MONO % 9.4 % (3.8-10.2); NEUT % 67.6 % (42.8-82.8); PLATELET COUNT 288 K/MM3 (134-434); RBC 4.27 M/mm3 (3.60-5.2); RDW 14.7 % (11.6-15.6); WHITE BLOOD COUNT 8.8 K/mm3 (4.0-10.0)
[2019-06-18 23:38] LABS: ACTIVATED PTT 30.7 SECONDS (25.2-36.5)
[2019-06-18 23:55] LABS: EPI CELLS 0.8 /HPF (0-5/HPF); HYALINE CASTS 40 /lpf (0-8); URINE APPEARANCE CLOUDY; URINE BACTERIA >9000 /hpf (NEGATIVE); URINE BILIRUBIN NEGATIVE (NEGATIVE); URINE COLOR DK YELLOW; URINE GLUCOSE (UA) NEGATIVE (NEGATIVE); URINE KETONE TRACE (NEGATIVE); URINE LEUK ESTERASE 1+ (NEGATIVE); URINE NITRITE NEGATIVE (NEGATIVE); URINE PROTEIN TRACE (NEGATIVE); URINE UROBILINOGEN 0.2 mg/dL (0.2-1.0); URINE WBC 38 /hpf (0-5)
[2019-06-19 00:02] LABS: ALBUMIN 3.4 g/dl (3.4-5.0); BILIRUBIN,TOTAL 0.4 mg/dL (0.2-1); BLOOD UREA NITROGEN 16.2 mg/dL (7-18); CALCIUM 9.3 mg/dL (8.5-10.1); POTASSIUM 3.8 mmol/L (3.5-5.1); TOT PROT 6.3 g/dl (6.4-8.2)
[2019-06-19] MEDS ORDERED: PIPERACILLIN/TAZOB 4.5 GM 4.5 GM in DEXTROSE 5%-WATER 100 ML IVPB ONE (00:02)
[2019-06-19] MEDS ORDERED: PIPERACILLIN/TAZOB 4.5 GM 4.5 GM/100 ML BAG IVPB ONE (00:51)
--- NOTE | 2019-06-19 03:42 | HP ---
Admitting History and Physical - Primary Care Physician PCP: Dr. Wisdom - Admission Chief Complaint: AMS History of Present Illness: 88 year old female with PMHx of dementia, HTN, and osteoporosis presenting via EMS from [place] with behavioral exchange consultant the past two days. Per ED phone conversation with family they state that she has been aggressive over the past two days and it is reminiscent of when she had a UTI one year prior. Patient confused at baseline, unable to conduct ROS. 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 Cardiovascular: Yes: CHF, HTN, Hyperlipdemia Gastrointestinal: Yes: GERD - Past Surgical History Past Surgical History: Yes: None - Smoking History Smoking history: Unknown if ever smoked Have you smoked in the past 12 months: No - Alcohol/Substance Use Hx Alcohol Use: No History of Substance Use: reports: None - Social History Usual Living Arrangement: Yes: Jail ADL: Support Services History of Recent Travel: No Home Medications - Allergies Allergies/Adverse Reactions: Allergies Allergy/AdvReac Type Severity Reaction Status Date / Time No Known Allergies Allergy Verified 06/18/19 22:19 - Home Medications Home Medications: Ambulatory Orders Alendronate Na [Fosamax (Weekly)] 70 mg PO Q7D 11/04/16 Aspirin [ASA -] 81 mg PO DAILY 11/04/16 Calcium 500Mg/Vit-D 200 Units [Os-Gregg 500+D -] 1 combo PO BID 11/04/16 Citalopram Hydrobromide [Citalopram HBr] 10 mg PO ASDIR 11/04/16 Ergocalciferol [Vitamin D2] 50,000 unit PO Q7D@1000 11/04/16 Omeprazole 20 mg PO DAILY 11/04/16 Rosuvastatin [Crestor -] 10 mg PO DAILY 11/04/16 Ubidecarenone [Coenzyme Q-10] 200 mg PO DAILY 11/04/16 Donepezil HCl [Aricept -] 10 mg PO DAILY #14 tablet MDD 1 11/07/16 Lisinopril [Prinivil] 10 mg PO BID tablet 11/07/16 Memantine HCl [Namenda -] 5 mg PO BID #20 tab MDD 2 11/07/16 Quetiapine Fumarate [Seroquel -] 12.5 mg PO BID PRN #14 tablet MDD 2 11/07/16 Quetiapine Fumarate [Seroquel -] 25 mg PO HS #30 tablet MDD 1 11/07/16 Family Medical History Family History: Unable to Obtain Review of Systems Unable to obtain ROS, reason: AMS Physical Examination Vital Signs: Vital Signs Temperature 96.2 F L 06/18/19 20:30 Pulse Rate 57 L 06/18/19 20:30 Respiratory Rate 16 06/18/19 20:30 Blood Pressure 102/48 L 06/18/19 20:30 O2 Sat by Pulse Oximetry (%) 99 06/18/19 20:30 Constitutional: Yes: No Distress, Calm Eyes: Yes: Conjunctiva Clear, EOM Intact HENT: Yes: Atraumatic, Normocephalic Neck: Yes: Supple, Trachea Midline Cardiovascular: Yes: Regular Rate and Rhythm Respiratory: Yes: Regular, CTA Bilaterally Gastrointestinal: Yes: Normal Bowel Sounds, Soft Musculoskeletal: Yes: WNL Extremities: Yes: WNL Edema: No Peripheral Pulses WNL: Yes Integumentary: Yes: WNL Neurological: Yes: Alert, Confusion Labs: CBC, BMP 06/18/19 23:00 06/18/19 23:00 Imaging - Results Chest X-ray: Report Reviewed (no acute infiltrate) Cat Scan: Report Reviewed (Head CT: no acute intracranial abnormality, mild right mastoiditis) Problem List - Problems (1) AMS (altered mental status) Code(s): R41.82 - ALTERED MENTAL STATUS, UNSPECIFIED (2) UTI (urinary tract infection) Code(s): N39.0 - URINARY TRACT INFECTION, SITE NOT SPECIFIED Qualifiers: Urinary tract infection type: site unspecified Hematuria presence: without hematuria Qualified Code(s): N39.0 - Urinary tract infection, site not specified (3) HTN (hypertension) Code(s): I10 - ESSENTIAL (PRIMARY) HYPERTENSION (4) Osteoporosis Code(s): M81.0 - AGE-RELATED OSTEOPOROSIS W/O CURRENT PATHOLOGICAL FRACTURE (5) Dementia Code(s): F03.90 - UNSPECIFIED DEMENTIA WITHOUT BEHAVIORAL DISTURBANCE (6) HLD (hyperlipidemia) Code(s): E78.5 - HYPERLIPIDEMIA, UNSPECIFIED (7) GERD (gastroesophageal reflux disease) Code(s): K21.9 - GASTRO-ESOPHAGEAL REFLUX DISEASE WITHOUT ESOPHAGITIS (8) Unspecified mastoiditis, right ear Code(s): H70.91 - UNSPECIFIED MASTOIDITIS, RIGHT EAR Assessment/Plan 88 year old female with PMHx of dementia, HTN, and osteoporosis presenting via EMS from [place] with behavioral exchange consultant the past two days. #AMS #UTI #mild right mastoiditis - wbc: wnl, afebrile, lactic wnl - lytes, Cr normal - UA + -cxr: no infiltrate - CT: Head CT: no acute intracranial abnormality, mild right mastoiditis - follow up blood, urine cx - bp dropped in ED, 500ml bolus given x1, now at baseline - given zosyn x1, continue with zosyn - follow up ID -follow up cbc, bmp in AM #Dementia -Quetiapine Fumarate 25 mg PO HS -Citalopram Hydrobromide 10 mg PO HS -Memantine HCl 5 mg PO BID -Donepezil HCl 10 mg PO DAILY - safety/fall precaution #HTN #HLD # CHF - monitor BP Rosuvastatin 10 mg PO DAILY Ubidecarenone 200 mg PO DAILY Lisinopril 10 mg PO BID - monitor I & O - daily weight - fluid restriction # GERD -Omeprazole 20 mg PO DAILY Dispo: Med-surg VTE: heparin SQ FEN: cardiac diet, monitor lytes, fluid restriction Visit type - Emergency Visit Emergency Visit: Yes ED Registration Date: 06/19/19 Care time: The patient presented to the Emergency Department on the above date and was hospitalized for further evaluation of their emergent condition. - New Patient This patient is new to me today: Yes Date on this admission: 06/19/19 - Critical Care Critical Care patient: No
[2019-06-19] MEDS ORDERED: ACETAMINOPHEN 325 MG TABLET (FP) PO PRN (04:02)
[2019-06-19] MEDS ORDERED: PIPERACILLIN/TAZOB 3.375 GM 3.375 GM in DEXTROSE 5%-WATER - 50 ML IVPB SCH ×2 (04:15→10:00)
[2019-06-19 06:40] LABS: HEMATOCRIT 38.5 % (32.4-45.2); HEMOGLOBIN 12.7 GM/dL (10.7-15.3); MCH 30.6 pg (25.7-33.7); MCHC 33.1 g/dl (32.0-36.0); MEAN CELL VOLUME 92.3 fl (80-96); MEAN PLT VOLUME 7.7 fl (7.5-11.1); PLATELET COUNT 255 K/MM3 (134-434); RBC 4.17 M/mm3 (3.60-5.2); RDW 14.6 % (11.6-15.6); WHITE BLOOD COUNT 6.9 K/mm3 (4.0-10.0)
[2019-06-19 07:06] LABS: BLOOD UREA NITROGEN 13.7 mg/dL (7-18); POTASSIUM 3.6 mmol/L (3.5-5.1)
[2019-06-19] MEDS: CITALOPRAM HYDROBROMIDE 10 MG TABLET PO SCH (09:06)
[2019-06-19] MEDS: HEPARIN NA (PORCINE) 5,000 UNITS/ML 1ML VIAL SQ SCH ×2 (09:06→23:55)
[2019-06-19] MEDS: PANTOPRAZOLE 20 MG TABLET PO SCH (09:07)
[2019-06-19] MEDS: MEMANTINE HCL 5 MG TABLET (UD) PO SCH ×2 (09:07→23:55)
[2019-06-19] MEDS: LISINOPRIL 10 MG TABLET (FP) PO SCH ×2 (09:07→23:55)
[2019-06-19] MEDS ORDERED: PATIENT'S OWN MEDICATION (NON-FORMULARY) (Omeprazole 20 MG) PO SCH (10:00)
[2019-06-19] MEDS ORDERED: UBIDECARENONE 200 MG PO SCH (10:00)
--- NOTE | 2019-06-19 10:02 | EKG ---
Test Reason : Blood Pressure : / mmHG Vent. Rate : 059 BPM Atrial Rate : 059 BPM P-R Int : 238 ms QRS Dur : 090 ms QT Int : 506 ms P-R-T Axes : 042 -09 054 degrees QTc Int : 500 ms SINUS BRADYCARDIA WITH 1ST DEGREE A-V BLOCK INFERIOR INFARCT (CITED ON OR BEFORE 24-DEC-2001) ABNORMAL ECG WHEN COMPARED WITH ECG OF 04-NOV-2016 12:30, LA INTERVAL HAS INCREASED Confirmed by SIMON CIFUENTES MD ([id number]) on 06/19/2019 10:01:26 AM Referred By: Confirmed By:SIMON CIFUENTES MD
[2019-06-19] MEDS ORDERED: PIPERACILLIN/TAZOB 3.375 GM 3.375 GM/50 ML BAG IVPB ONE (10:03)
--- NOTE | 2019-06-19 10:22 | PN ---
Progress Note (short form) - Note Progress Note: ID consult dictated imp/reccd 88 yo female admitted from [place] for aggressive behavior no fevers PMH dementia cannot r/o uti in this setting as patient is a poor historian clinically has no pain - suprapubic or cvat on exam afebrile no leukocytosis can switch to ceftriaxone f/u cultures consider psych evaluation for worsening dementia Problem List - Problems (1) Change in behavior Code(s): R46.89 - OTHER SYMPTOMS AND SIGNS INVOLVING APPEARANCE AND BEHAVIOR (2) UTI (urinary tract infection) Code(s): N39.0 - URINARY TRACT INFECTION, SITE NOT SPECIFIED Qualifiers: Urinary tract infection type: site unspecified Hematuria presence: without hematuria Qualified Code(s): N39.0 - Urinary tract infection, site not specified (3) Dementia Code(s): F03.90 - UNSPECIFIED DEMENTIA WITHOUT BEHAVIORAL DISTURBANCE
--- NOTE | 2019-06-19 10:28 | PN ---
Progress Note, Physician Chief Complaint: AMS UTI Dementia History of Present Illness: Previous notes and events reviewed awake and alert NAD denies dysuria denies chest pain or SOB UC pending no leukocytosis - Current Medication List Current Medications: Active Medications Acetaminophen (Tylenol -) 650 mg PO Q4H PRN PRN Reason: FEVER Citalopram Hydrobromide (Celexa -) 10 mg PO DAILY [facility] Last Admin: 06/19/19 09:06 Dose: 10 mg Donepezil HCl (Aricept -) 10 mg PO [facility] Heparin Sodium (Porcine) (Heparin -) 5,000 unit SQ BID [facility] Last Admin: 06/19/19 09:06 Dose: 5,000 unit Lisinopril (Prinivil) 10 mg PO BID [facility] Last Admin: 06/19/19 09:07 Dose: 10 mg Memantine (Namenda -) 5 mg PO BID [facility] Last Admin: 06/19/19 09:07 Dose: 5 mg Non-Formulary Medication (Ubidecarenone [Coenzyme Q-10]) 200 mg PO DAILY [facility] Pantoprazole Sodium (Protonix -) 20 mg PO DAILY [facility] Last Admin: 06/19/19 09:07 Dose: 20 mg Quetiapine Fumarate (Seroquel -) 25 mg PO [facility] Rosuvastatin Calcium (Crestor -) 10 mg PO [facility] - Objective Vital Signs: Vital Signs Temperature 97.4 F L 06/19/19 05:10 Pulse Rate 70 06/19/19 05:10 Respiratory Rate 18 06/19/19 05:10 Blood Pressure 122/96 06/19/19 05:10 O2 Sat by Pulse Oximetry (%) 98 06/19/19 05:10 Constitutional: Yes: No Distress, Calm Eyes: Yes: Conjunctiva Clear HENT: Yes: Atraumatic Cardiovascular: Yes: Regular Rate and Rhythm Respiratory: Yes: Regular, CTA Bilaterally Gastrointestinal: Yes: Normal Bowel Sounds, Soft Genitourinary: Yes: Incontinence Musculoskeletal: Yes: Muscle Weakness Extremities: Yes: WNL Edema: No Neurological: Yes: Alert, Oriented (to person and place) Psychiatric: Yes: Alert Labs: CBC, BMP 06/19/19 05:55 06/19/19 05:55 INR, PTT INR 1.13 (0.83-1.09) H 06/18/19 23:00 Problem List - Problems (1) AMS (altered mental status) Assessment/Plan: -possibly secondary to infection -Neurology consult -Head CT scan shows no evidence of acute intracranial hemorrhage, edema, midline shift, mass effect or skull fracture, no CT evidence of of acute territorial ischemic changes, no evidence of hydrocephalus -UC and BC pending -no leukopcytosis Code(s): R41.82 - ALTERED MENTAL STATUS, UNSPECIFIED (2) GERD (gastroesophageal reflux disease) Assessment/Plan: -Pantoprazole Code(s): K21.9 - GASTRO-ESOPHAGEAL REFLUX DISEASE WITHOUT ESOPHAGITIS (3) HLD (hyperlipidemia) Assessment/Plan: -Rosuvastatin Code(s): E78.5 - HYPERLIPIDEMIA, UNSPECIFIED (4) HTN (hypertension) Assessment/Plan: -Lisinopril -low Na diet Code(s): I10 - ESSENTIAL (PRIMARY) HYPERTENSION (5) UTI (urinary tract infection) Assessment/Plan: -UA shows 1+ leuks, 3+ blood, trace protein -UC pending -afebrile -no leukocytosis -ID on board -LA 1.6 -Ceftriaxone Code(s): N39.0 - URINARY TRACT INFECTION, SITE NOT SPECIFIED Qualifiers: Urinary tract infection type: site unspecified Hematuria presence: without hematuria Qualified Code(s): N39.0 - Urinary tract infection, site not specified (6) Unspecified mastoiditis, right ear Assessment/Plan: -afebrile -no leukocytosis -ID on board -LA 1.6 -Ceftriaxone -BC pending Code(s): H70.91 - UNSPECIFIED MASTOIDITIS, RIGHT EAR (7) Dementia Assessment/Plan: -Neurology consult -Namenda and Aricept -Head CT scan shows no evidence of acute intracranial hemorrhage, edema, midline shift, mass effect or skull fracture, no CT evidence of of acute territorial ischemic changes, no evidence of hydrocephalus Code(s): F03.90 - UNSPECIFIED DEMENTIA WITHOUT BEHAVIORAL DISTURBANCE Assessment/Plan see problem list dvt
[2019-06-19] MEDS ORDERED: CEFTRIAXONE 1 GM/50 ML BAG ONE (10:42)
--- NOTE | 2019-06-19 13:15 | CONS ---
INFECTIOUS DISEASE CONSULTATION DATE OF CONSULTATION: DATE OF DICTATION: 06/19/2019 REQUESTED BY: Boyd Wisdom MD HISTORY OF PRESENT ILLNESS: This is an 88-year-old woman. She was admitted from the assisted. She has history of dementia. She has had progressive behavioral changes at the assisted. She has become apparently more aggressive and somewhat combative. Concerns were raised for a UTI, as apparently this was the trigger the last time this happened to her one year ago. The patient is alert, and awake, but she is demented, and unable to give any history. She denies any pain. She is resting comfortably on the stretcher in the ER. I am asked to see her for a possible UTI. PAST MEDICAL HISTORY: Notable for dementia, CHF, hypertension, hyperlipidemia, and GERD. There is no history of any surgery. SOCIAL HISTORY: There is no history of cigarette or substance use. She resides at the assisted. ALLERGIES: She has no known drug allergies. MEDICATIONS: Include donepezil, Namenda, aspirin, Celexa, Colace, Haldol, senna, and trazodone. FAMILY HISTORY: Not obtainable. REVIEW OF SYSTEMS: As well, she denies any chest pain, abdominal pain. PHYSICAL EXAMINATION: Vital Signs: On physical exam, her temperature is 97.4, pulse is 70, blood pressure is 122/96, respiratory rate is 18, she is saturating 98% on room air. HEENT: She is normocephalic. Her eyes are anicteric. Neck: Supple. Lungs: Clear to auscultation. Heart: Regular rate and rhythm. Abdomen: She has no CVA or suprapubic tenderness. Extremities: Without edema. Skin: She has multiple ecchymoses on her arm. LABORATORY DATA: White count on admission was , this morning was 6.9, hemoglobin 12.7, platelets are 255. BUN and creatinine are 13 and 1. LFTs are normal. TSH is 4.5. Her urinalysis has 1+ leuks with 38 white cells. Cultures are pending. In summary, this is an 88-year-old woman, admitted for change in routine behavior, possible UTI. I cannot rule out a UTI in this setting. Can switch to ceftriaxone, as she has no recent history of resistant organisms. Would follow up cultures. Would consider a psych evaluation for worsening dementia. DAKSHA ABREU M.D. [id number]
[2019-06-19] MEDS: CEFTRIAXONE 1 GM in DEXTROSE 5%-WATER - 50 ML IVPB SCH (15:55)
[2019-06-19 23:39] VITALS: BMI 25.8
[2019-06-19] MEDS: QUEtiapine FUMARATE 25 MG TABLET PO SCH (23:55)
[2019-06-19] MEDS: ROSUVASTATIN CA 10 MG TABLET (FP) PO SCH (23:55)
[2019-06-19] MEDS: DONEPEZIL HCL 10 MG TABLET (FP) PO SCH (23:55)
[2019-06-20 06:23] LABS: HEMATOCRIT 37.6 % (32.4-45.2); HEMOGLOBIN 12.3 GM/dL (10.7-15.3); MCH 29.7 pg (25.7-33.7); MCHC 32.8 g/dl (32.0-36.0); MEAN CELL VOLUME 90.7 fl (80-96); MEAN PLT VOLUME 7.7 fl (7.5-11.1); PLATELET COUNT 263 K/MM3 (134-434); RBC 4.15 M/mm3 (3.60-5.2); RDW 14.7 % (11.6-15.6); WHITE BLOOD COUNT 5.7 K/mm3 (4.0-10.0)
[2019-06-20 06:46] LABS: ALBUMIN 2.8 g/dl (3.4-5.0); BILIRUBIN,TOTAL 0.5 mg/dL (0.2-1); CREATININE 1.1 mg/dL (0.55-1.3); TOT PROT 5.5 g/dl (6.4-8.2)
--- NOTE | 2019-06-20 08:14 | PN ---
Progress Note, Physician - Current Medication List Current Medications: Active Medications Acetaminophen (Tylenol -) 650 mg PO Q4H PRN PRN Reason: FEVER Citalopram Hydrobromide (Celexa -) 10 mg PO DAILY [facility] Last Admin: 06/19/19 09:06 Dose: 10 mg Donepezil HCl (Aricept -) 10 mg PO HS [facility] Last Admin: 06/19/19 23:55 Dose: 10 mg Heparin Sodium (Porcine) (Heparin -) 5,000 unit SQ BID [facility] Last Admin: 06/19/19 23:55 Dose: 5,000 unit Ceftriaxone Sodium 1 gm/ (Dextrose) 50 mls @ 100 mls/hr IVPB DAILY [facility]; Protocol Last Admin: 06/19/19 15:55 Dose: 100 mls/hr Lisinopril (Prinivil) 10 mg PO BID [facility] Last Admin: 06/19/19 23:55 Dose: 10 mg Memantine (Namenda -) 5 mg PO BID [facility] Last Admin: 06/19/19 23:55 Dose: 5 mg Non-Formulary Medication (Ubidecarenone [Coenzyme Q-10]) 200 mg PO DAILY [facility] Pantoprazole Sodium (Protonix -) 20 mg PO DAILY [facility] Last Admin: 06/19/19 09:07 Dose: 20 mg Quetiapine Fumarate (Seroquel -) 25 mg PO [facility] Last Admin: 06/19/19 23:55 Dose: 25 mg Rosuvastatin Calcium (Crestor -) 10 mg PO [facility] Last Admin: 06/19/19 23:55 Dose: 10 mg - Objective Vital Signs: Vital Signs Temperature 97.4 F L 06/20/19 06:05 Pulse Rate 56 L 06/20/19 06:05 Respiratory Rate 18 06/20/19 06:05 Blood Pressure 105/54 L 06/20/19 06:05 O2 Sat by Pulse Oximetry (%) 95 06/19/19 22:54 Labs: CBC, BMP 06/20/19 06:00 06/20/19 06:00 INR, PTT INR 1.13 (0.83-1.09) H 06/18/19 23:00 Assessment/Plan - Problems (1) AMS (altered mental status) Assessment/Plan: -possibly secondary to infection -Neurology consult -Head CT scan shows no evidence of acute intracranial hemorrhage, edema, midline shift, mass effect or skull fracture, no CT evidence of of acute territorial ischemic changes, no evidence of hydrocephalus -UC and BC pending -no leukopcytosis Code(s): R41.82 - ALTERED MENTAL STATUS, UNSPECIFIED (2) GERD (gastroesophageal reflux disease) Assessment/Plan: -Pantoprazole Code(s): K21.9 - GASTRO-ESOPHAGEAL REFLUX DISEASE WITHOUT ESOPHAGITIS (3) HLD (hyperlipidemia) Assessment/Plan: -Rosuvastatin Code(s): E78.5 - HYPERLIPIDEMIA, UNSPECIFIED (4) HTN (hypertension) Assessment/Plan: -Lisinopril -low Na diet Code(s): I10 - ESSENTIAL (PRIMARY) HYPERTENSION (5) UTI (urinary tract infection) Assessment/Plan: -UA shows 1+ leuks, 3+ blood, trace protein -UC pending Microbiology 06/18/19 23:00 Blood - Peripheral Venous Blood Culture - Preliminary NO GROWTH OBTAINED AFTER 24 HOURS, INCUBATION TO CONTINUE FOR 4 DAYS. 06/18/19 23:00 Blood - Peripheral Venous Blood Culture - Preliminary NO GROWTH OBTAINED AFTER 24 HOURS, INCUBATION TO CONTINUE FOR 4 DAYS. -afebrile -no leukocytosis -ID on board -LA 1.6 -Ceftriaxone Code(s): N39.0 - URINARY TRACT INFECTION, SITE NOT SPECIFIED Qualifiers: Urinary tract infection type: site unspecified Hematuria presence: without hematuria Qualified Code(s): N39.0 - Urinary tract infection, site not specified (6) Unspecified mastoiditis, right ear Assessment/Plan: -afebrile -no leukocytosis -ID on board -LA 1.6 -Ceftriaxone -BC pending Code(s): H70.91 - UNSPECIFIED MASTOIDITIS, RIGHT EAR (7) Dementia Assessment/Plan: -Neurology consult -Namenda and Aricept -Head CT scan shows no evidence of acute intracranial hemorrhage, edema, midline shift, mass effect or skull fracture, no CT evidence of of acute territorial ischemic changes, no evidence of hydrocephalus Code(s): F03.90 - UNSPECIFIED DEMENTIA WITHOUT BEHAVIORAL DISTURBANCE
[2019-06-20] MEDS ORDERED: cefTRIAXone SODIUM 1 GM VIAL ONE (09:04)
[2019-06-20] MEDS ORDERED: DEXTROSE 5%-WATER - 50 ML IVPB ONE (09:04)
[2019-06-20] MEDS: CEFTRIAXONE 1 GM in DEXTROSE 5%-WATER - 50 ML IVPB SCH (11:31)
[2019-06-20] MEDS: PANTOPRAZOLE 20 MG TABLET PO SCH (11:32)
[2019-06-20] MEDS: CITALOPRAM HYDROBROMIDE 10 MG TABLET PO SCH (11:32)
[2019-06-20] MEDS: MEMANTINE HCL 5 MG TABLET (UD) PO SCH ×2 (11:32→21:53)
[2019-06-20] MEDS: HEPARIN NA (PORCINE) 5,000 UNITS/ML 1ML VIAL SQ SCH ×2 (11:33→21:53)
[2019-06-20] MEDS: LISINOPRIL 10 MG TABLET (FP) PO SCH ×2 (11:34→21:53)
--- NOTE | 2019-06-20 16:29 | PN ---
Progress Note (short form) - Note Progress Note: resting comfortably alert Vital Signs Period Temp Pulse Resp BP Sys/Stauffer Pulse Ox Last 24 Hr 97.4 F-98.5 F 49-78 18-19 105-135/43-74 95-100 cor-rrr lungs clear abd soft,nt ext no edema CBC, BMP 06/20/19 06:00 06/20/19 06:00 Microbiology 06/18/19 23:25 Urine - Urine - Catheterized Urine Culture - Preliminary Lactose Fermenting Neg Bacilli 06/18/19 23:00 Blood - Peripheral Venous Blood Culture - Preliminary NO GROWTH OBTAINED AFTER 24 HOURS, INCUBATION TO CONTINUE FOR 4 DAYS. 06/18/19 23:00 Blood - Peripheral Venous Blood Culture - Preliminary NO GROWTH OBTAINED AFTER 24 HOURS, INCUBATION TO CONTINUE FOR 4 DAYS. a/p UTI- continue ceftriaxone f/u cultures in am consider psych evaluation for worsening dementia Problem List - Problems (1) Change in behavior Code(s): R46.89 - OTHER SYMPTOMS AND SIGNS INVOLVING APPEARANCE AND BEHAVIOR (2) UTI (urinary tract infection) Code(s): N39.0 - URINARY TRACT INFECTION, SITE NOT SPECIFIED Qualifiers: Urinary tract infection type: site unspecified Hematuria presence: without hematuria Qualified Code(s): N39.0 - Urinary tract infection, site not specified (3) Dementia Code(s): F03.90 - UNSPECIFIED DEMENTIA WITHOUT BEHAVIORAL DISTURBANCE
--- NOTE | 2019-06-20 19:27 | CONSULT ---
Consult - text type - Consultation Consultation Note: NEUROLOGY CONSULTATION is greatly appreciated: This 88 yo RH woman lives with her family. PMH sig for HTN, GERD, OP, depression and dementia. Seen by me 11/05/16 for worsening of OMS with UTI. Aparrently, this occurred last year as well. Meds include: Alendronate; Aspirin 81; Citalopram 10 mg; Omeprazole; Crestor; Donepezil; Lisinopril; Memantine 5 mg PO BID; Quetiapine 12.5 BID and 25 mg HS Now admitted with increased confusion, agitation, and combative behavior. CT of head (reviewed) shows moderately severe, diffuse, atrophy with ex-vacuo ventricular enlargement. U/A shows 38 WBC. Now on ceftriaxone. TSH= 4.5. RONNA: Neck supple. No bruits. Cor Reg. NEURO: Awake, alert, cooperative. Follows 1, 2 strp commands in [place] Thinks she is at home. December 1995 + Glabella, snout, suck, grasps (symmetrical) CN II-XII: Normal Motor: No drift or tremor. Min cogsheeling. Normal strength and reflexes. Toes downgoing No FTN dystaxia Feels touch throughout. Gait: Flexed, shuffling, mild retropulsion IMP: Non-focal exam sig for Moderately severe, B/L cerebral dysfunction (OMS/ Chronic) -Most c/w Alzheimer's disease Worsened by Toxic-Metabolic Encephalopathy (UTI, hypothyroid?) SUGGEST: Continue antibiotics and hydration Continue Donepezil 10 mg qAM Increase Memantine to 10 mg PO BID if tolerated Repeat TSH, T4 and Rx if necessary (Endocrine consult if desired) Check B12 Mobilize OO Bed to chair and ambulate with PT (Or DVT prophylaxis ) Thank you very much, Tucker Morse MD
[2019-06-20] MEDS: DONEPEZIL HCL 10 MG TABLET (FP) PO SCH (21:53)
[2019-06-20] MEDS: QUEtiapine FUMARATE 25 MG TABLET PO SCH (21:53)
[2019-06-20] MEDS: ROSUVASTATIN CA 10 MG TABLET (FP) PO SCH (21:53)
[2019-06-21] MEDS ORDERED: cefTRIAXone SODIUM 1 GM VIAL ONE (08:59)
[2019-06-21] MEDS ORDERED: PT OWN MED DRAWER 7, Y5N ONE (08:59)
[2019-06-21] MEDS ORDERED: DEXTROSE 5%-WATER - 50 ML IVPB ONE (09:00)
--- NOTE | 2019-06-21 10:15 | DS ---
Physical Examination Vital Signs: Vital Signs Temperature 97.5 F L 06/21/19 06:27 Pulse Rate 70 06/21/19 06:27 Respiratory Rate 18 06/21/19 06:27 Blood Pressure 132/79 06/21/19 06:27 O2 Sat by Pulse Oximetry (%) 95 06/20/19 21:00 Cardiovascular: Yes: S1, S2 Respiratory: Yes: Regular, CTA Bilaterally Gastrointestinal: Yes: Normal Bowel Sounds, Soft. No: Tenderness Neurological: Yes: Alert, Confusion Labs: CBC, BMP 06/20/19 06:00 06/20/19 06:00 Discharge Summary Problems reviewed: Yes Reason For Visit: BEHAVIORAL CHANGE, URINARY TRACT INFECTION Current Active Problems AMS (altered mental status) (Acute) Acute delirium (Acute) Change in behavior (Acute) GERD (gastroesophageal reflux disease) (Acute) HLD (hyperlipidemia) (Acute) HTN (hypertension) (Acute) Osteoporosis (Acute) UTI (urinary tract infection) (Acute) Unspecified mastoiditis, right ear (Acute) Hospital Course: Problems (1) AMS (altered mental status) Assessment/Plan: -possibly secondary to infection -Neurology consult noted -Head CT scan shows no evidence of acute intracranial hemorrhage, edema, midline shift, mass effect or skull fracture, no CT evidence of of acute territorial ischemic changes, no evidence of hydrocephalus -UC and BC --urine E coli -no leukopcytosis Code(s): R41.82 - ALTERED MENTAL STATUS, UNSPECIFIED (2) GERD (gastroesophageal reflux disease) Assessment/Plan: -Pantoprazole Code(s): K21.9 - GASTRO-ESOPHAGEAL REFLUX DISEASE WITHOUT ESOPHAGITIS (3) HLD (hyperlipidemia) Assessment/Plan: -Rosuvastatin Code(s): E78.5 - HYPERLIPIDEMIA, UNSPECIFIED (4) HTN (hypertension) Assessment/Plan: -Lisinopril -low Na diet Code(s): I10 - ESSENTIAL (PRIMARY) HYPERTENSION (5) UTI (urinary tract infection) Assessment/Plan: -UA shows 1+ leuks, 3+ blood, trace protein -UC E.coli Microbiology 06/18/19 23:00 Blood - Peripheral Venous Blood Culture - Preliminary NO GROWTH OBTAINED AFTER 24 HOURS, INCUBATION TO CONTINUE FOR 4 DAYS. 06/18/19 23:00 Blood - Peripheral Venous Blood Culture - Preliminary NO GROWTH OBTAINED AFTER 24 HOURS, INCUBATION TO CONTINUE FOR 4 DAYS. -afebrile -no leukocytosis -ID on board -LA 1.6 -Ceftriaxone--to cipro Code(s): N39.0 - URINARY TRACT INFECTION, SITE NOT SPECIFIED Qualifiers: Urinary tract infection type: site unspecified Hematuria presence: without hematuria Qualified Code(s): N39.0 - Urinary tract infection, site not specified (6) Unspecified mastoiditis, right ear Assessment/Plan: -afebrile -no leukocytosis -ID on board -LA 1.6 -Ceftriaxone -BC pending Code(s): H70.91 - UNSPECIFIED MASTOIDITIS, RIGHT EAR (7) Dementia Assessment/Plan: -Neurology consult -Namenda 10 bid -Aricept 10 mg -Head CT scan shows no evidence of acute intracranial hemorrhage, edema, midline shift, mass effect or skull fracture, no CT evidence of of acute territorial ischemic changes, no evidence of hydrocephalus Code(s): F03.90 - UNSPECIFIED DEMENTIA WITHOUT BEHAVIORAL DISTURBANCE Condition: Fair - Instructions Referrals: ON STAFF,NOT [Primary Care Provider] - Disposition: RETIREMENT FACILITY - Home Medications Comprehensive Discharge Medication List: Ambulatory Orders Alendronate Na [Fosamax (Weekly)] 70 mg PO Q7D 11/04/16 Aspirin [ASA -] 81 mg PO DAILY 11/04/16 Calcium 500Mg/Vit-D 200 Units [Os-Gregg 500+D -] 1 combo PO BID 11/04/16 Citalopram Hydrobromide [Citalopram HBr] 10 mg PO ASDIR 11/04/16 Ergocalciferol [Vitamin D2] 50,000 unit PO Q7D@1000 11/04/16 Omeprazole 20 mg PO DAILY 11/04/16 Rosuvastatin [Crestor -] 10 mg PO DAILY 11/04/16 Ubidecarenone [Coenzyme Q-10] 200 mg PO DAILY 11/04/16 Donepezil HCl [Aricept -] 10 mg PO DAILY #14 tablet MDD 1 11/07/16 Lisinopril [Prinivil] 10 mg PO BID tablet 11/07/16 Quetiapine Fumarate [Seroquel -] 25 mg PO HS #30 tablet MDD 1 11/07/16 Ciprofloxacin [Cipro (Restricted To Id)] 250 mg PO BID #14 tablet 06/21/19 Memantine HCl [Namenda -] 10 mg PO BID #20 tab MDD 2 06/21/19
[2019-06-21] MEDS: CEFTRIAXONE 1 GM in DEXTROSE 5%-WATER - 50 ML IVPB SCH (10:26)
[2019-06-21] MEDS: MEMANTINE HCL 5 MG TABLET (UD) PO SCH (10:26)
[2019-06-21] MEDS: HEPARIN NA (PORCINE) 5,000 UNITS/ML 1ML VIAL SQ SCH (10:26)
[2019-06-21] MEDS: CITALOPRAM HYDROBROMIDE 10 MG TABLET PO SCH (10:26)
[2019-06-21] MEDS: PANTOPRAZOLE 20 MG TABLET PO SCH (10:26)
[2019-06-21] MEDS: LISINOPRIL 10 MG TABLET (FP) PO SCH (10:27)
[2019-06-21 18:48] VITALS: BP 139/73; PULSE 84; TEMP 98.1
== END 2019-06-21 19:23 | DRG 689 ==
LOC: JER 20:29 → SUPCPDRO 20:29 → JERBED 06-19 01:13 → J7W 06-19 22:33
PROVIDERS: ADMIT Internal Medicine; ATTEND Family Medicine
DX: N39.0 Urinary tract infection, site not specified (principal); G93.41 Metabolic encephalopathy; B96.20 Unspecified Escherichia coli [E. coli] as the cause of diseases classified elsewhere; I10 Essential (primary) hypertension; K21.9 Gastro-esophageal reflux disease without esophagitis; H70.91 Unspecified mastoiditis, right ear; M81.0 Age-related osteoporosis without current pathological fracture; E78.5 Hyperlipidemia, unspecified; G30.9 Alzheimer's disease, unspecified; F02.80 Dementia in other diseases classified elsewhere, unspecified severity, without behavioral disturbance, psychotic disturbance, mood disturbance, and anxiety; I11.0 Hypertensive heart disease with heart failure; I50.9 Heart failure, unspecified
CPT/HCPCS: 36415; 70450-TC; 71045-TC-FY; 80048; 80053; 81003; 83605; 84443; 84484; 85025; 85027; 85610; 85730; 87040; 87086; 87186; 93005; 93010; 97116-GP; 97162-GP; 99284-25; J1644